=== PATIENT | male | born 1975 ===

== ENCOUNTER 2018-04-13 10:49 | Emergency (ER) | payer OTHER ==
[~2018-04-13] VITALS: Ht 188 cm; Wt 99.8 kg
[2018-04-13] MEDS ORDERED: ASPIRIN81 M1 (11:07)
[2018-04-13] MEDS ORDERED: BENADRYL25 MG PO (12:58)
[2018-04-13] MEDS ORDERED: BACTRIM DS TAB1 EACH PO (12:58)
[2018-04-13] MEDS ORDERED: ZYRTEC10 M3 PO (12:58)
[2018-04-13] MEDS ORDERED: MEDROLPACK PO (12:58)
== END 2018-04-13 13:28 | disposition home or self-care (01) ==
LOC: ER 10:49
DX: R21 Rash and other nonspecific skin eruption (principal); T78.49XA Other allergy, initial encounter; X58.XXXA Exposure to other specified factors, initial encounter